=== PATIENT | female | born 1940 | race Caucasian/White ===

== ENCOUNTER → 2019-01-14 | Outpatient (REF) | payer MEDICARE ==
[~2019-01-14] MED LIST: AMLODIPINE10 MG PO; ATENOLOL100 MG OR; ATENOLOL50 MG OR; AZOR1 TA1 OR; CLONAZEPAM1 MG PO; CLONIDINE0.1 MG PO; COREG25 MG PO; CRESTOR10 MG OR; DOLACET1 CAP PO; ECOTRIN325 MG OR; HYDROCHLOROT25 MG OR; HYDROCHLOROTH12.5 MG OR; LEXAPRO10 MG OR; LIPITOR40 MG OR; LUNESTA2 MG OR; LUNESTA3 MG PO; NITROGLYCER0.4 MG SL; NITROSTAT0.4 MG SL; ONDANSETRON4 MG OR; PLAVIX75 MG OR; SIMVASTATIN5 MG OR; TENORMIN50 MG OR; XANAX0.25 MG OR; XANAX0.5 MG OR
[2019-01-14 10:19] LABS: URINE BILIRUBIN - DIPSTICK NEGATIVE (NEGATIVE); URINE BLOOD DIPSTICK NEGATIVE (NEGATIVE); URINE COLOR YELLOW; URINE GLUCOSE - DIPSTICK NEGATIVE (NEGATIVE); URINE KETONE NEGATIVE (NEGATIVE); URINE LEUK ESTERASE TRACE (NEGATIVE); URINE PROTEIN - DIPSTICK TRACE mg/dL (NEG-TRACE); URINE UROBILINOGEN - DIPSTICK 0.2 E.U./dL (0.2)
[2019-01-14 10:25] LABS: URINE NITRITE - DIPSTICK POSITIVE (Negative)
[2019-01-14 10:26] LABS: URINE BACTERIA MANY hpf; URINE EPITHELIAL CELLS MODERATE EPI/hpf (0-FEW)
== END | disposition home or self-care (01) ==
LOC: LAB 07:31
PROVIDERS: ATTEND Nurse Practitioner
DX: R82.90 Unspecified abnormal findings in urine (principal); B96.20 Unspecified Escherichia coli [E. coli] as the cause of diseases classified elsewhere